=== PATIENT | male | born 1960 | race Caucasian/White ===

== ENCOUNTER 2017-05-27 20:35 | Emergency (ER) | payer OTHER ==
[~2017-05-27] VITALS: Ht 185.4 cm; Wt 115.8 kg
[2017-05-27 21:34] LABS: HEMATOCRIT 42.6 % (38.0-50.0); MCH 30.1 PG (29.0-34.0); MCHC 34.7 G/DL (30.0-36.0); MCV 86.8 FL (86-99); MEAN PLAT.VOLUME 10.3 uM^3 (9.0-12.4); PLATELET COUNT 244 K/uL (156-360); RBC DIS.WIDTH-CV 12.3 % (11.8-14.6); RED BLOOD COUNT 4.91 M/uL (4.00-5.50); WHITE BLOOD COUNT 11.7 K/uL (4.1-10.2)
[2017-05-27 21:41] LABS: PTT 29.4 SEC (25-37)
[2017-05-27 21:44] LABS: CHLORIDE 106 mEq/L (99-109); POTASSIUM 4.2 mEq/L (3.7-5.4); SODIUM 136 mEq/L (136-147)
[2017-05-27 21:46] LABS: GLUCOSE 144 mg/dL (70-99)
[2017-05-27 21:47] LABS: ANION GAP 9 MEQ/L (2-14)
[2017-05-27 21:50] LABS: GFR ESTIMATE (CALCULATED) > 59 mL/min/; UREA NITROGEN (BUN) 15 mg/dL (9-23)
[2017-05-27 23:32] VITALS: BP 174/78
== END 2017-05-27 23:32 | disposition left against medical advice (07) ==
LOC: EME 20:35
PROVIDERS: Emergency Medicine
DX: R51 Headache (principal); Z98.2 Presence of cerebrospinal fluid drainage device; F17.200 Nicotine dependence, unspecified, uncomplicated; Z88.6 Allergy status to analgesic agent; Z88.2 Allergy status to sulfonamides
CPT/HCPCS: 70450; 80048; 85027; 85610; 85730; 99281; 99284; J1630; J3010